=== PATIENT | male | born 1960 | race African-American/Black ===

== ENCOUNTER 2020-02-29 09:35 | Inpatient (IN) | payer OTHER ==
[~2020-02-29] VITALS: Ht 180.3 cm; Wt 75.3 kg
[~2020-02-29 09:35] MED LIST: ALBU90OI6 INH; ALLO100 PO; AMLO10 PO; AMLO5 PO; ASPI325 PO; ASPI325EC PO; ATEN50; ATEN50 PO; Augmentin 875-1 EACH PO; BENA10; BENZ100A PO; CIPR500 PO; CLOP75 PO; CODGUAEL PO; COLC.6; COLC.6 PO; DICY20 PO; FAMO20 PO; Flagyl500 MG PO; GUAI600T33 PO; HYDR1TAB94 PO; IBUP400 PO; ISOMON30 PO; Isosorbide Mono30 MG PO; LEVFLO500 PO; LOSA25 PO; Levaquin500 MG PO; METO100 PO; METO50 PO; METR500 PO; MULVITMIND PO; NITR.4SL SL; Norco 5-325 Ta1 EACH PO; OXYACE5T PO; PRAV10 PO; PRAV20 PO; Phenergan25 M1 PO; TAMS.4ER PO
[2020-02-29] MEDS ORDERED: Pravachol40 MG PO (09:57)
[2020-02-29 10:15] LABS: BASOPHILS ABSOLUTE AUTO 0.04 K/mm3 (0.00-0.23); BASOPHILS PERCENT AUTO 0 % (0-2); EOSINOPHILS ABSOLUTE AUTO 0.02 K/mm3 (0.00-0.68); EOSINOPHILS PERCENT AUTO 0 % (0-6); Hemoglobin 16.7 g/dL (13.5-17.5); IMMATURE GRAN ABSOLUTE AUTO 0.12 K/mm3 (0.00-0.10); IMMATURE GRAN PERCENT AUTO 1 % (0-1); LYMPHOCYTES ABSOLUTE AUTO 0.62 K/mm3 (0.84-5.20); LYMPHOCYTES PERCENT AUTO 3 % (21-46); MONOCYTES ABSOLUTE AUTO 1.56 K/mm3 (0.16-1.47); MONOCYTES PERCENT AUTO 7 % (4-13); Mean Corpuscular HGB 30.9 pg (26.0-34.0); Mean Corpuscular HGB Conc 33.4 g/dL (31.5-36.5); Mean Corpuscular Volume 93 fL (80-100); Mean Platelet Volume 9.5 fL (9.1-12.4); NEUTROPHILS ABSOLUTE AUTO 19.77 K/mm3 (1.96-9.15); NEUTROPHILS PERCENT AUTO 89 % (41-73); Platelet Count 371 K/mm3 (150-400); RDW Coefficient Variation 14.2 % (11.7-14.2); RDW Standard Deviation 47.8 fL (35.1-46.3); White Blood Cell Count 22.13 K/mm3 (4.00-11.30)
[2020-02-29 10:24] LABS: Source, Urine Clean Catch
[2020-02-29 10:27] LABS: Bilirubin, Urine Neg (Neg); Blood, Urine 2+ (Neg); Glucose Qualitative, Urine Neg (Neg); Ketones, Urine Neg (Neg); Leukocyte Esterase, Urine Neg (Neg); Nitrite, Urine Neg (Neg); Protein, Urine 3+ (Neg); Urobilinogen, Urine 1+ (Normal)
[2020-02-29 10:28] LABS: Albumin, Blood 2.7 g/dL (3.4-5.0); Albumin/Globulin Ratio 0.5 (0.8-1.8); Bilirubin, Total 0.8 mg/dL (0.1-1.0); Bun/Creatinine Ratio 14.9 (12.0-20.0); Calcium, Blood 9.1 mg/dL (8.5-10.1); Creatinine, Blood 1.74 mg/dL (0.60-1.20); Globulin, Blood 5.8 g/dL (2.2-4.0); Potassium, Blood 4.4 mmol/L (3.5-5.5); Total Protein, Blood 8.5 g/dL (6.4-8.2)
[2020-02-29 10:36] LABS: Appearance, Urine Hazy (Clear); Color, Urine Yellow (P-Yellow)
[2020-02-29 10:37] LABS: White Blood Cells, Urine Not Seen /hpf (0-5)
[2020-02-29 10:38] LABS: Bacteria Few /hpf; Squamous Epithelial Cells Rare /hpf (Few)
[2020-02-29] MEDS ORDERED: CLONAZEPAM0.5 M1 PO (13:43)
[2020-02-29] MEDS ORDERED: SODBIC650 PO (13:44)
[2020-02-29] MEDS ORDERED: LOSARTAN POTASS25 M2 PO (13:44)
[2020-02-29] MEDS ORDERED: NITR.4SL SL (13:45)
[2020-02-29] MEDS ORDERED: ALLOPURINOL100 M1 PO (13:45)
[2020-02-29] MEDS ORDERED: ASPI325EC PO (13:46)
--- NOTE | 2020-02-29 14:40 | NUR ---
MEDICAL FLOOR NURSE, GLENDA GREEN CALLED ER FOR REPORT AT 1440. ER STATED THAT THIS PATIENT'S NURSE WILL RETURN MY CALL. AWAITING CALL AT THIS TIME
--- NOTE | 2020-02-29 16:56 | NUR ---
SHIFT SUMMARY PT AXO PLEASANT AND COOPERATIVE WITH CARE. ADMIT THIS SHIFT. ARRIVED TO ROOM AT 1524 VIA WHEELCHAIR. ADMISSION PROCESS COMPLETED. IV PATENT AND INFUSING PER EMAR. PT COMPLAINS OF LOWER ABDOMINAL PAIN THAT IS SHARP. MEDICATED IN ER AND PER EMAR. VSS. PT ON TELE, SINUS AT 84 AT THIS TIME PER TECH. PT REQUESTED A SPIRITUAL CARE VISIT FROM [facility] IF POSSIBLE. INDEPENDENT IN ROOM. BED IN LOW POSITION, CALL LIGHT WITHIN REACH. GENERAL SURGERY CONSULT CALLED TO DR BELTRAN, SEE ORDER.
--- NOTE | 2020-03-01 01:15 | NUR ---
SPOKE TO HOSPITALIST ABOUT PT'S PAIN. MEDICATION NOT LASTING THE 4 HOURS ORDERED. NEW ORDERS GIVEN FOR UP TO EVERY TWO HOURS PRN.
--- NOTE | 2020-03-01 04:42 | NUR ---
SHIFT SUMMARY [id number], VSS. PT REPORTS ABDOMINAL PAIN THAT HAS NOT MOVED DURING SHIFT. PT OFTEN GRASPING AT ABDOMEN. TOLERATING MED ORDERS PER EMAR. STATES RELIEF BUT STILL NOT MEETING PT [employer] PAIN GOALS. PT VOIDING IN URINAL. HAS BEEN UP TO BATHROOM MULTIPLE TIMES TO PASS SMALL AMOUNT OF GAS AND PER PT REPORT VERY SMALL AMOUNT OF LOOSE STOOL. DIET ORDER CHANGED TO NPO PER NURSE NOTES, PT ONLY DRINKING SMALL SIPS OF WATER SINCE MIDNIGHT. PLAN IS TO DO REPEAT IMAGING TODAY.
[2020-03-01 05:17] LABS: BASOPHILS ABSOLUTE AUTO 0.03 K/mm3 (0.00-0.23); BASOPHILS PERCENT AUTO 0 % (0-2); EOSINOPHILS ABSOLUTE AUTO 0.01 K/mm3 (0.00-0.68); EOSINOPHILS PERCENT AUTO 0 % (0-6); Hematocrit 43.5 % (37.0-53.0); Hemoglobin 14.1 g/dL (13.5-17.5); IMMATURE GRAN ABSOLUTE AUTO 0.08 K/mm3 (0.00-0.10); IMMATURE GRAN PERCENT AUTO 0 % (0-1); LYMPHOCYTES ABSOLUTE AUTO 0.64 K/mm3 (0.84-5.20); LYMPHOCYTES PERCENT AUTO 4 % (21-46); MONOCYTES ABSOLUTE AUTO 1.62 K/mm3 (0.16-1.47); MONOCYTES PERCENT AUTO 9 % (4-13); Mean Corpuscular HGB 30.7 pg (26.0-34.0); Mean Corpuscular HGB Conc 32.4 g/dL (31.5-36.5); Mean Corpuscular Volume 95 fL (80-100); Mean Platelet Volume 9.6 fL (9.1-12.4); NEUTROPHILS ABSOLUTE AUTO 15.76 K/mm3 (1.96-9.15); NEUTROPHILS PERCENT AUTO 87 % (41-73); Platelet Count 326 K/mm3 (150-400); RDW Coefficient Variation 14.2 % (11.7-14.2); White Blood Cell Count 18.14 K/mm3 (4.00-11.30)
[2020-03-01 05:31] LABS: International Normalized Ratio 1.12; Prothrombin Time Results 11.9 Sec (9.7-11.5)
[2020-03-01 05:36] LABS: Albumin, Blood 2.4 g/dL (3.4-5.0); Albumin/Globulin Ratio 0.5 (0.8-1.8); Bilirubin, Total 0.9 mg/dL (0.1-1.0); Bun/Creatinine Ratio 14.3 (12.0-20.0); Calcium, Blood 8.4 mg/dL (8.5-10.1); Creatinine, Blood 1.61 mg/dL (0.60-1.20); Globulin, Blood 4.6 g/dL (2.2-4.0); Magnesium, Blood 1.8 mg/dL (1.6-2.4); Potassium, Blood 3.4 mmol/L (3.5-5.5)
--- NOTE | 2020-03-01 13:04 | NUR ---
Patient is sitting on EOB and alert. Patient explains about his medical issues, his [employer] (Patient [facility] [employer] [facility] [place]) and his family. Patient talks about his fears with what is happening with our government, with what is happening with the spread of Covid-19 and with what is happening with not having surgery. I listen empathically, reinforce helpful attitudes and practices and provide pastoral career development counselor and prayer. Patient responds well and shows displays evidence of reduced fear and increased peace. I will continue to remain available to patient and family.
[2020-03-01 16:09] LABS: Adenovirus F 40/41 Not Detected (NOT DETECT); Astrovirus Not Detected (NOT DETECT); Campylobacter Sp Not Detected (NOT DETECT); Cryptosporidium Not Detected (NOT DETECT); Cyclospora Cayetanensis Not Detected (NOT DETECT); E. Coli O157 Not Detected (NOT DETECT); Entamoeba Histolytica Not Detected (NOT DETECT); Enteroaggregative E. coli-EAEC Not Detected (NOT DETECT); Enteropathogenic E. coli-EPEC Not Detected (NOT DETECT); Enterotoxigenic E. coli-ETEC Not Detected (NOT DETECT); Giardia Lamblia Not Detected (NOT DETECT); Norovirus GI/GII Not Detected (NOT DETECT); Plesiomonas Shigelloides Not Detected (NOT DETECT); Rotavirus A Not Detected (NOT DETECT); Salmonella Sp Not Detected (NOT DETECT); Sapovirus Not Detected (NOT DETECT); Shiga Toxin-prod E. coli-STEC Not Detected (NOT DETECT); Shigella/Enteroin E. coli-EIEC Not Detected (NOT DETECT); Vibrio Cholerae Not Detected (NOT DETECT); Vibrio Sp Not Detected (NOT DETECT); Yersinia Enterocolitica Not Detected (NOT DETECT)
--- NOTE | 2020-03-01 18:35 | NUR ---
PT. SITTING IN BED EATING CL MEAL. TOLERATING WELL. HAS DENIED N/V TODAY. PT.S PAIN IS UNDER CONTROL WITH THE DILAUDID. SINCE STARTING IT, SHARRI ONLY HAD TO GIVE IT TWICE. IS HAVING BETTER COVERAGE WITH DILAUDID THAN FENTANYL. DR. BELTRAN TO SEE PT, TODAY AND IS GOING TO CONTINUE THE ANTIBIOTIC TO TRY AND RESOLVE THE PT'S DIVERTICULITIS.
[2020-03-02 05:16] LABS: BASOPHILS ABSOLUTE AUTO 0.02 K/mm3 (0.00-0.23); BASOPHILS PERCENT AUTO 0 % (0-2); EOSINOPHILS ABSOLUTE AUTO 0.09 K/mm3 (0.00-0.68); EOSINOPHILS PERCENT AUTO 1 % (0-6); Hematocrit 43.5 % (37.0-53.0); IMMATURE GRAN ABSOLUTE AUTO 0.02 K/mm3 (0.00-0.10); IMMATURE GRAN PERCENT AUTO 0 % (0-1); LYMPHOCYTES PERCENT AUTO 12 % (21-46); MONOCYTES ABSOLUTE AUTO 0.78 K/mm3 (0.16-1.47); MONOCYTES PERCENT AUTO 10 % (4-13); Mean Corpuscular HGB 30.3 pg (26.0-34.0); Mean Corpuscular HGB Conc 32.2 g/dL (31.5-36.5); Mean Corpuscular Volume 94 fL (80-100); Mean Platelet Volume 9.5 fL (9.1-12.4); NEUTROPHILS ABSOLUTE AUTO 6.26 K/mm3 (1.96-9.15); NEUTROPHILS PERCENT AUTO 77 % (41-73); Platelet Count 326 K/mm3 (150-400); RDW Coefficient Variation 14.4 % (11.7-14.2); RDW Standard Deviation 50.3 fL (35.1-46.3); Red Blood Cell Count 4.62 M/mm3 (4.30-5.90); White Blood Cell Count 8.17 K/mm3 (4.00-11.30)
[2020-03-02 05:38] LABS: Albumin, Blood 2.3 g/dL (3.4-5.0); Anion Gap 6 mmol/L (6-16); Blood Urea Nitrogen 16 mg/dL (8-24); Bun/Creatinine Ratio 11.4 (12.0-20.0); CO2, Blood 21 mmol/L (21-32); Calcium, Blood 8.1 mg/dL (8.5-10.1); Chloride, Blood 114 mmol/L (98-108); Glomerular Filtration Rate 55 (60-); Glucose, Blood 94 mg/dL (70-99); Phosphorus, Blood 2.3 mg/dL (2.5-4.9); Potassium, Blood 3.7 mmol/L (3.5-5.5); Sodium, Blood 141 mmol/L (136-145)
[2020-03-02] MEDS ORDERED: ASPI81CH PO (11:53)
[2020-03-02] MEDS ORDERED: Florastor250 MG PO (11:55)
[2020-03-02] MEDS ORDERED: METR500 PO (11:56)
[2020-03-02] MEDS ORDERED: AMOCLA875 PO (11:56)
[2020-03-02] MEDS ORDERED: TRAM50 PO (11:57)
--- NOTE | 2020-03-02 13:37 | NUR ---
PT. DISCHARGED HOME. DROVE HIMSELF HOME HE DROVE HIMSELF TO THE HOSPITAL. PT. WANTED A DOSE OF IV DILAUDID BEFORE LEAVING. BEINGS HE WAS DRIVING HIMSELF HOME I REFUSED AND TOLD HIM I COULDN'T GIVE IT TO HIM KNOWING HE WAS GOING TO DRIVE. PT STATED HE UNDERSROOD AND KITCHEN STEWARD TOOK HIM TO HIS CAR.
== END 2020-03-02 13:32 | disposition home or self-care (01) | DRG 392 ==
LOC: ER 09:35 → MEDS 13:06 → ENPENDDIS 03-02 11:41 → MEDS 03-02 13:32
PROVIDERS: Emergency Medicine; Family Medicine; Nurse Practitioner Acute Care; ADMIT Internal Medicine
DX: K57.20 Diverticulitis of large intestine with perforation and abscess without bleeding (principal); N17.9 Acute kidney failure, unspecified; N18.3 Chronic kidney disease, stage 3 (moderate); I12.9 Hypertensive chronic kidney disease with stage 1 through stage 4 chronic kidney disease, or unspecified chronic kidney disease; I25.10 Atherosclerotic heart disease of native coronary artery without angina pectoris; E87.6 Hypokalemia; E78.5 Hyperlipidemia, unspecified; Z95.1 Presence of aortocoronary bypass graft; Z95.5 Presence of coronary angioplasty implant and graft; Z79.02 Long term (current) use of antithrombotics/antiplatelets; Z79.82 Long term (current) use of aspirin
CPT/HCPCS: 0097U; 36415; 74176; 80053; 80069; 81001; 83690; 83735; 85025; 85610; 87040; 87086; 96361; 96365; 96375; 99285-25; A9270-GY; J1170; J2405; J2543; J3010; J7030; J7120

== ENCOUNTER 2020-04-12 07:32 | Day surgery (SDC) | payer OTHER ==
[~2020-04-12] VITALS: Ht 177.8 cm; Wt 81.2 kg
[~2020-04-12 07:32] MED LIST changes: +ALLOPURINOL100 M1 PO; +AMLODIPINE BESY10 MG PO; +AMOCLA875 PO; +ASPI81CH PO; +Aspir 8181 MG PO; +CLONAZEPAM0.5 M1 PO; +Florastor250 MG PO; +LOSA50 PO; +LOSARTAN POTASS25 M2 PO; +MULTIVITAMINS1 EAC3 PO; +NITROGLYCERIN0.4 MG SL; +Pravachol40 MG PO; +Pravastatin Sod80 MG PO; +SODBIC650 PO; +TRAM50 PO
== END 2020-04-12 09:26 | disposition home or self-care (01) ==
LOC: ORSCSDS 07:32
PROVIDERS: Surgery
PROC: 0DJD8ZZ Inspection of Lower Intestinal Tract, Via Natural or Artificial Opening Endoscopic (ICD-10-PCS; principal; 2020-04-12 08:30)
DX: Z87.19 Personal history of other diseases of the digestive system (principal); K57.30 Diverticulosis of large intestine without perforation or abscess without bleeding; I10 Essential (primary) hypertension; E78.5 Hyperlipidemia, unspecified; I25.2 Old myocardial infarction; Z87.891 Personal history of nicotine dependence; Z79.82 Long term (current) use of aspirin; Z79.899 Other long term (current) drug therapy
CPT/HCPCS: J2704; J7120